=== PATIENT | male | born 1940 | race Two or more races ===

== ENCOUNTER 2016-10-14 20:15 | Inpatient (IN) | payer BC ==
[~2016-10-14] VITALS: Ht 172.7 cm; Wt 65.8 kg
[2016-10-14 20:17] VITALS: BP 101/53
[2016-10-14] MEDS ORDERED: Pantoprazole Inj IVP ONE (20:30)
[2016-10-14 21:05] LABS: BASOPHILS % (AUTO) 1.5 % (0.0-2.0); LYMPHOCYTES % (AUTO) 20.6 % (20.0-45.0); MEAN CORPUSCULAR HEMOGLOBIN 36.8 PG (27.0-31.0); MEAN CORPUSCULAR VOLUME 102 FL (80-99); MEAN PLATELET VOLUME 6.5 FL (6.5-10.1); MONOCYTES % (AUTO) 7.4 % (1.0-10.0); NEUTROPHILS % (AUTO) 69.5 % (45.0-75.0); PLATELET COUNT 133 K/UL (150-450); RED BLOOD COUNT 3.57 M/UL (4.70-6.10); RED CELL DISTRIBUTION WIDTH 12.4 % (11.6-14.8); WHITE BLOOD COUNT 7.5 K/UL (4.8-10.8)
[2016-10-14 21:13] LABS: INR 1.1 (0.9-1.1)
[2016-10-14 21:14] LABS: ALANINE AMINOTRANSFERASE 23 U/L (3-41); ALBUMIN/GLOBULIN RATIO 1.8 (1.0-2.7); ANION GAP 15 (5-15); ASPARTATE AMINO TRANSFERASE 20 U/L (5-40); CALCIUM 8.8 mg/dL (8.6-10.2); CARBON DIOXIDE 23 mEQ/L (20-30); CHLORIDE 102 mEQ/L (98-107); CREATININE 1.1 mg/dL (0.7-1.2); HEMOLYSIS 7; LIPASE 34 U/L (< 60); POTASSIUM 4.5 mEQ/L (3.4-4.9); SODIUM 140 mEQ/L (135-145); TOTAL PROTEIN 5.7 g/dL (6.6-8.7)
[2016-10-14 22:36] LABS: APPEARANCE,URINE CLEAR; KETONES,URINE NEGATIVE (NEGATIVE); LEUKOCYTE ESTERASE ,URINE NEGATIVE (NEGATIVE); NITRITE,URINE NEGATIVE (NEGATIVE); PH,URINE 5 (4.5-8.0); PROTEIN,URINE 2+ (NEGATIVE); UROBILINOGEN,URINE NORMAL MG/DL (0.0-1.0)
[2016-10-14] MEDS ORDERED: Nitroglycerin Subl 0.4mg tab (Bottle Of 25) SL PRN (22:45)
[2016-10-14] MEDS ORDERED: Milk of Magnesia 30ml Ud ORAL PRN (22:45)
[2016-10-14] MEDS ORDERED: Acetaminophen 650 MG SUPP RECTAL PRN ×2 (22:45)
[2016-10-14 22:56] LABS: RBC,URINE 0-2 /HPF (0 - 0); WBC,URINE 0-2 /HPF (0 - 0)
[2016-10-14 22:57] LABS: BACTERIA,URINE FEW /HPF
[2016-10-15] VITALS: BP 115/77
--- NOTE | 2016-10-15 02:20 | Emergency Room Report ---
History of Present Illness General Chief Complaint: Gastrointestinal Bleed Source: Patient, EMS Present Illness HPI Patient's 76-year-old male brought in by EMS after hematemesis. Patient was noted to have some difficulty with xhbbiy-gtanpg-fzjvgfchy emesis. Patient noted be hypotensive by EMS he started on IV fluids. Patient denies recent NSAID use or alcohol use.Patient reported having one episode of emesis. Allergies: Coded Allergies: No Known Allergies (Unverified , 10/14/16) Patient History Reviewed Nursing Documentation: PMH: Agreed, PSxH: Agreed Nursing Documentation-PMH Hx Hypertension: Yes - HYPERLIPIDEMIA Review of Systems All Other Systems: negative except mentioned in HPI Physical Exam Vital Signs Date Time Temp Pulse Resp B/P Pulse Ox O2 Delivery O2 Flow Rate FiO2 10/14/16 20:09 60 20 103/70 99 Room Air 10/14/16 20:17 95.3 General Appearance: GCS 15, moderate distress Eyes: bilateral eye conjunctivae pale ENT: no angioedema Neck: full range of motion Respiratory: lungs clear, normal breath sounds, no rhonchi Gastrointestinal: normal bowel sounds, non tender, soft Neurologic: normal inspection, alert, oriented x3 Skin: pallor Medical Decision Making Diagnostic Impression: Primary Impression: Gastrointestinal hemorrhage Additional Impression: Hypotension ER Course Patient presented for hematemesis. Differential diagnosis included was not limited to aortic enteric fistula, gastritis, Chandni-Caitlyn s tear, ulcer, coagulopathy, esophageal varices , anemia among others.Because of complexity of patient's case laboratory testing and imaging studies were ordered. The patient was given IV Protonix . he was started on IV fluids. Patient was noted to have initial adequate hemoglobin. Patient was type and crossed for blood. Patient was noted to have improvement in his blood pressure. The CT the abdomen pelvis read by radiology showed calcified gallstone without evident cholecystitis there is no noted obstruction. Dr. Carrillo Garcia was contacted for Dr. Balderrama for inpatient management. The family had requested the patient be transferred. The patient does not appear to be stable for transfer at this time. The patient agreed to be admitted to the hospital. Labs Test 10/14/16 20:35 10/14/16 22:10 White Blood Count 7.5 K/UL (4.8-10.8) Red Blood Count 3.57 M/UL (4.70-6.10) Hemoglobin 13.1 G/DL (14.2-18.0) Hematocrit 36.4 % (42.0-52.0) Mean Corpuscular Volume 102 FL (80-99) Mean Corpuscular Hemoglobin 36.8 PG (27.0-31.0) Mean Corpuscular Hemoglobin Concent 36.0 G/DL (32.0-36.0) Red Cell Distribution Width 12.4 % (11.6-14.8) Platelet Count 133 K/UL (150-450) Mean Platelet Volume 6.5 FL (6.5-10.1) Neutrophils (%) (Auto) 69.5 % (45.0-75.0) Lymphocytes (%) (Auto) 20.6 % (20.0-45.0) Monocytes (%) (Auto) 7.4 % (1.0-10.0) Eosinophils (%) (Auto) 1.0 % (0.0-3.0) Basophils (%) (Auto) 1.5 % (0.0-2.0) Prothrombin Time 11.0 SEC (9.30-11.50) Prothromb Time International Ratio 1.1 (0.9-1.1) Activated Partial Thromboplast Time 22 SEC (23-33) Sodium Level 140 mEQ/L (135-145) Potassium Level 4.5 mEQ/L (3.4-4.9) Chloride Level 102 mEQ/L (98-107) Carbon Dioxide Level 23 mEQ/L (20-30) Anion Gap 15 (5-15) Blood Urea Nitrogen 38 mg/dL (7-23) Creatinine 1.1 mg/dL (0.7-1.2) Estimat Glomerular Filtration Rate mL/min (>60) Glucose Level 175 mg/dL (74-106) Calcium Level 8.8 mg/dL (8.6-10.2) Total Bilirubin 0.4 mg/dL (0.0-1.2) Aspartate Amino Transf (AST/SGOT) 20 U/L (5-40) Alanine Aminotransferase (ALT/SGPT) 23 U/L (3-41) Alkaline Phosphatase 38 U/L (40-129) Total Protein 5.7 g/dL (6.6-8.7) Albumin 3.7 g/dL (3.5-5.2) Globulin 2.0 g/dL Albumin/Globulin Ratio 1.8 (1.0-2.7) Lipase 34 U/L (< 60) Urine Color Pale yellow Urine Appearance Clear Urine pH 5 (4.5-8.0) Urine Specific [place] 1.015 (1.005-1.035) Urine Protein 2+ (NEGATIVE) Urine Glucose (UA) Negative (NEGATIVE) Urine Ketones Negative (NEGATIVE) Urine Occult Blood Negative (NEGATIVE) Urine Nitrite Negative (NEGATIVE) Urine Bilirubin Negative (NEGATIVE) Urine Urobilinogen Normal MG/DL (0.0-1.0) Urine Leukocyte Esterase Negative (NEGATIVE) Urine RBC 0-2 /HPF (0 - 0) Urine WBC 0-2 /HPF (0 - 0) Urine Squamous Epithelial Cells None /LPF (NONE/OCC) Urine Bacteria Few /HPF (NONE) EKG Diagnostic Results Rate: normal Rhythm: NSR Last Vital Signs Date Time Temp Pulse Resp B/P Pulse Ox O2 Delivery O2 Flow Rate FiO2 10/14/16 20:17 95.3 57 20 101/53 99 Room Air Status: unchanged Disposition: ADMITTED INPATIENT Condition: Serious Referrals: [facility],REFERRING (PCP) Matt Cedeño October 15, 2016 02:20
[2016-10-15 02:21] VITALS: BP 126/68
[2016-10-15] MEDS: Pantoprazole Inj IV SCH ×2 (02:52→09:00)
[2016-10-15] MEDS: 1/2NS w/KCl 20mEq 1000ml 1,000 ML IV SCH ×2 (02:52→07:32)
[2016-10-15 08:00] VITALS: BP 120/72
[2016-10-15 12:00] VITALS: BP 124/71
--- NOTE | 2016-10-15 13:16 | GI Initial Consult Note ---
History of Present Illness General Date patient seen: October 15, 2016 Time patient seen: 13:02 Reason for Hospitalization: Gastrointestinal Bleed Referring physician: BETI HARPER Reason for Consultation: UGIB Present Illness HPI Patient's 76-year-old male brought in by EMS after hematemesis. Patient was noted to have some difficulty with osidcv-[id number]-hplpjpemh emesis. Patient noted be hypotensive by EMS he started on IV fluids. Patient denies recent NSAID use or alcohol use.Patient reported having one episode of emesis. GI CONSULT: HPI as noted above. GI consulted for possible UGIB. Pt seen on floor, awake A&Ox4 with daughter by bedside. No active s/sx of hematemesis or coffee grounds. According to the patient, his coffee ground emesis was a x1 episode. He states he had a lot of coffee prior that september of contributed to it. He also stated he felt nauseated at the time. Patients he had his stool previously tested for blood approximately 2 months ago by his primary care physician. Last colonoscopy was 12 years ago with unremarkable results. No history of upper endoscopy. He presents today with stable hgb and is currently tolerating diet at bedside. Lipase, LFTs unremarkable. Pt refusing any GI procedures and wishes to be discharged home. Allergies: Coded Allergies: No Known Allergies (Unverified , 10/14/16) Patient History History Provided By: Patient PMH Narrative Hx Hypertension: Yes - HYPERLIPIDEMIA Family History Narrative N/A Social History: Denies: alcohol use, drug use, other, smoking Review of Systems All Other Systems: negative except mentioned in HPI Physical Exam Vital Signs Date Time Temp Pulse Resp B/P Pulse Ox O2 Delivery O2 Flow Rate FiO2 10/14/16 20:09 60 20 103/70 99 Room Air 10/14/16 20:17 95.3 Sp02 EP Interpretation: reviewed Labs Laboratory Tests Test 10/14/16 20:35 10/14/16 22:10 White Blood Count 7.5 K/UL (4.8-10.8) Red Blood Count 3.57 M/UL (4.70-6.10) L Hemoglobin 13.1 G/DL (14.2-18.0) L Hematocrit 36.4 % (42.0-52.0) L Mean Corpuscular Volume 102 FL (80-99) H Mean Corpuscular Hemoglobin 36.8 PG (27.0-31.0) H Mean Corpuscular Hemoglobin Concent 36.0 G/DL (32.0-36.0) Red Cell Distribution Width 12.4 % (11.6-14.8) Platelet Count 133 K/UL (150-450) L Mean Platelet Volume 6.5 FL (6.5-10.1) Neutrophils (%) (Auto) 69.5 % (45.0-75.0) Lymphocytes (%) (Auto) 20.6 % (20.0-45.0) Monocytes (%) (Auto) 7.4 % (1.0-10.0) Eosinophils (%) (Auto) 1.0 % (0.0-3.0) Basophils (%) (Auto) 1.5 % (0.0-2.0) Prothrombin Time 11.0 SEC (9.30-11.50) Prothromb Time International Ratio 1.1 (0.9-1.1) Activated Partial Thromboplast Time 22 SEC (23-33) L Sodium Level 140 mEQ/L (135-145) Potassium Level 4.5 mEQ/L (3.4-4.9) Chloride Level 102 mEQ/L (98-107) Carbon Dioxide Level 23 mEQ/L (20-30) Anion Gap 15 (5-15) Blood Urea Nitrogen 38 mg/dL (7-23) H Creatinine 1.1 mg/dL (0.7-1.2) Estimat Glomerular Filtration Rate mL/min (>60) Glucose Level 175 mg/dL (74-106) H Calcium Level 8.8 mg/dL (8.6-10.2) Total Bilirubin 0.4 mg/dL (0.0-1.2) Aspartate Amino Transf (AST/SGOT) 20 U/L (5-40) Alanine Aminotransferase (ALT/SGPT) 23 U/L (3-41) Alkaline Phosphatase 38 U/L (40-129) L Total Protein 5.7 g/dL (6.6-8.7) L Albumin 3.7 g/dL (3.5-5.2) Globulin 2.0 g/dL Albumin/Globulin Ratio 1.8 (1.0-2.7) Lipase 34 U/L (< 60) Urine Color Pale yellow Urine Appearance Clear Urine pH 5 (4.5-8.0) Urine Specific [place] 1.015 (1.005-1.035) Urine Protein 2+ (NEGATIVE) H Urine Glucose (UA) Negative (NEGATIVE) Urine Ketones Negative (NEGATIVE) Urine Occult Blood Negative (NEGATIVE) Urine Nitrite Negative (NEGATIVE) Urine Bilirubin Negative (NEGATIVE) Urine Urobilinogen Normal MG/DL (0.0-1.0) Urine Leukocyte Esterase Negative (NEGATIVE) Urine RBC 0-2 /HPF (0 - 0) H Urine WBC 0-2 /HPF (0 - 0) Urine Squamous Epithelial Cells None /LPF (NONE/OCC) Urine Bacteria Few /HPF (NONE) General Appearance: no apparent distress Head: normocephalic EENT: PERRL/EOMI, normal ENT inspection Neck: supple Respiratory: no respiratory distress Cardiovascular: normal rate Rectal: deferred Neurologic: normal inspection, alert, oriented x3, responsive Psychiatric: normal inspection, judgement/insight normal, memory normal Skin: normal inspection, normal color, no rash, warm/dry Lymphatic: normal inspection, no adenopathy Current Medications Current Medications Medications (Trade) Dose Ordered Sig/Josh Route PRN Reason Start Time Stop Time Status Last Admin Dose Admin Acetaminophen (Tylenol) 650 mg Q4H PRN ORAL Mild Pain (Pain Scale 1-3) 10/14/16 22:45 11/13/16 22:44 Acetaminophen (Tylenol) 650 mg Q4H PRN ORAL fever 10/14/16 22:45 11/13/16 22:44 Acetaminophen (Tylenol) 650 mg Q4H PRN RECTAL Mild Pain (Pain Scale 1-3) 10/14/16 22:45 11/13/16 22:44 Acetaminophen (Tylenol) 650 mg Q4H PRN RECTAL fever 10/14/16 22:45 11/13/16 22:44 Dextrose (Dextrose 50%) STAT PRN IV Hypoglycemia 10/14/16 22:45 11/13/16 22:44 Magnesium Hydroxide (Mom) 30 ml HSPRN PRN ORAL Constipation 10/14/16 22:45 11/13/16 22:44 Nitroglycerin (Ntg) 0.4 mg Q5M PRN SL Prn Chest Pain 10/14/16 22:45 11/13/16 22:44 Ondansetron HCl (Zofran) 4 mg Q4HR PRN IVP Nausea & Vomiting 10/14/16 22:45 11/13/16 22:44 Pantoprazole (Protonix) 40 mg BIAC ORAL 10/15/16 16:30 11/14/16 16:29 GI: Plan Problems: (1) Care refused by patient (2) HTN (hypertension) (3) GI bleed (4) Gastrointestinal hemorrhage Plan refusing endoscopic procedures., wishes to be discharged last colonoscopy ~ 12 years ago with unremarkable results OB stool negative 2 months ago per patient lipase WNL soft diet, tolerating cont ppi zofran prn consider collecting addition OB stool fu with PCP Spoke to the patient regarding the possibility of having an UGIB due to his coffee ground emesis and recommended both the EGD/colonoscopy done as an outpatient. The patient acknowledged and stated he would follow up with his PCP. Explain to the patient regarding alternative of [facility] for colonoscopy. Discussed with Dr. Sanders. Thank you for referring this patient. Mounika Chase N.P. October 15, 2016 13:16
--- NOTE | 2016-10-15 13:35 | Diagnostic Imaging Report ---
Indications: Abdominal pain, hemoptysis versus hematemesis Technique: Continuous helical CT imaging of the abdomen and pelvis was performed with automatic exposure control following administration of nonionic IV contrast only, on a Siemens sensation [address] scanner. Axial, coronal, sagittal images were reconstructed at 5 mm slice thickness. No oral contrast was administered per requesting physician's order, despite no contraindications listed in either submitted clinical data or tech note.. CTDI volume(s): 16 mGy Total DLP: 894 mGy-cm Findings: Comparison: None Lack of oral contrast limits evaluation of gastrointestinal tract, nondilated throughout. Small hiatal hernia. Mild distention and increased fluid content within multiple small bowel loops in right lower quadrant. Mildly prominent mural enhancement. Appendix short or absent. No obvious mural thickening, adjacent stranding, extraluminal gas or fluid collections identified. Liver parenchyma diffusely decreased attenuation. Gallbladder contains 2 cm densely calcified stone. No obvious mural thickening, adjacent stranding or fluid. 1 cm circumscribed low-attenuation focus, separate punctate calcification in splenic lower pole. Subcentimeter circumscribed low attenuation foci in lower pole cortex of left kidney. Scattered arterial mural calcifications without obvious flow-limiting stenosis or occlusion. Moderate aortic and iliac artery tortuosity. Mild prominence of prostate gland, heterogeneous with focal calcification, dense floor of the urinary bladder. Pancreas, adrenal glands, right kidney, unopacified ureters and urinary bladder, seminal vesicles, retroperitoneum, mesentery, remainder visualized abdominopelvic anatomy unremarkable. Small calcified nodular density lower lobe right lung. Irregular pleural-based linear densities and dependent portions both lung bases. Multilevel disc space narrowing with marginal osteophyte formation, vacuum phenomenon, facet sclerosis and hypertrophy lumbar, lower thoracic spine. 6 x 6 x 13 mm nodular calcification within spinal canal at the L3-4 level, uncertain whether intradural or extradural. Significant narrowing or spinal canal results. Subcentimeter anterior subluxation of L3 on L4. No associated pars interarticularis defect. IMPRESSION: No evidence of acute abdominopelvic disease, with limitation as described. Subtle but potentially significant abnormalities the gastrointestinal tract may be missed. Repeat CT scan with full oral and IV contrast preparation recommended for more complete evaluation, as clinically indicated Small hiatal hernia Hepatic steatosis Cholelithiasis Splenic cyst and granuloma Probable left renal cortical cysts Prominent, heterogeneous prostate Pulmonary bibasal subsegmental atelectasis versus scarring, right lung base granuloma Degenerative spondylosis Nodular calcification in spinal canal at L3-4 level, nonspecific, uncertain whether intradural or extradural. Diagnostic possibilities include but are not necessarily limited to calcified, sequestered disc fragment, calcified neoplasm such as meningioma. MRI of the lumbar spine without and with gadolinium recommended for more complete evaluation This correlates with [facility] preliminary report.
--- NOTE | 2016-10-15 13:49 | History & Physical ---
History and Physical History & Physicial dict syncope, low BP UGI bleed refuses further care here dc to care of his PMD protonix rx BETI HARPER October 15, 2016 13:49
--- NOTE | 2016-10-16 01:21 | History and Physical Report ---
DATE OF ADMISSION: 10/14/2016 CHIEF COMPLAINT: Syncope with upper GI bleeding. HISTORY OF PRESENT ILLNESS: The patient was at a nearby museum when he was standing up and suddenly felt faint. He says that his friends helped him to the floor and he nearly passed out. He vomited one or more times with some coffee-grounds emesis. He came to the emergency department by paramedics. He was initially hypotensive in the field, but was normotensive when he arrived here. Since that time, there has been no further complaints of nausea, vomiting, or evidence of GI bleeding. He got some intravenous fluids and his blood pressure has been satisfactory. This morning, he was seen by Gastroenterology and refused any further testing, intravenous fluids, medications, or endoscopy and wishes to go home. He tolerated the breakfast and lunch today. PAST MEDICAL HISTORY: Hypertension and hyperlipidemia. He has no history of ulcer or gastritis. No history of GI bleeding. No history of surgical procedures. He had kidney stones. There is no other health problems identified. ALLERGIES: None. MEDICATIONS: Ramipril and Vytorin. SOCIAL HISTORY: He smokes about 1/4 pack of cigarettes or less daily. He does not drink alcohol excessively. He does not use nonsteroidal medication. REVIEW OF SYSTEMS: Otherwise unremarkable. PHYSICAL EXAMINATION: GENERAL: The patient is alert and responds appropriately. He is well developed and well nourished. VITAL SIGNS: Normal. HEENT: Head is normocephalic. NECK: Has no jugular venous distention. No lymphadenopathy. CHEST: Clear. CARDIAC: Rhythm is regular without murmur or gallop. ABDOMEN: Soft and nontender. Liver and spleen not enlarged. No mass or ascites. EXTREMITIES: There is no clubbing, cyanosis, or edema. LABORATORY STUDIES: Show hemoglobin 13.1, hematocrit 36.4, MCV 102, and platelets 133,000. White count is normal. Chemistry shows mild elevation of BUN at 38 with creatinine 1.1. Blood sugar is 175. Urinalysis shows 2+ protein. Coagulation parameters are normal. IMPRESSIONS: 1. Syncope with hypotension. 2. Upper gastrointestinal bleeding. 3. Mild anemia with macrocytosis. 4. Mild hyperglycemia. 5. History of hypertension. 6. Hyperlipidemia. 7. Mild proteinuria. PLAN: I discussed his condition with the patient and the daughter at the bedside. I explained the risks of further bleeding, but the patient declines to have further treatment or evaluations at this hospital and wishes to leave today to seek further care from his primary physician with whom he spoken by phone. I will prescribe Protonix and advice the importance of taking it daily until he is evaluated further. Vinicius Balderrama M.D. DR: GUEVARA JOB#: [id number] CC: DANO
--- NOTE | 2016-10-16 03:21 | Consultation ---
DATE OF CONSULTATION: 10/15/2016 GASTROLOGY CONSULTATION CHIEF COMPLAINT: I was asked to see this patient by Dr. Vinicius Balderrama for evaluation of gastrointestinal bleeding. HISTORY OF PRESENT ILLNESS: The patient is a 76-year-old white man, who was admitted to the hospital after having dark emesis last night. This was the first time doing this. He has never had an ulcer before and he does take occasional nonsteroidal antiinflammatory drugs. His bowel movements are regular and brown. He is not having abdominal pain. He has never had endoscopy. His last colonoscopy was 12 years ago. The patient does not want to have any endoscopy or colonoscopy in this hospital. He refuses to have any gastroscope workup. He understands there is risk of refusal for appropriate care including and missed disease. He wants to go to his original doctor outside of the hospital and get his care there. PAST MEDICAL HISTORY: History of hypercholesterolemia on Vytorin, and history of high blood pressure on Ramipril. FAMILY HISTORY: Positive for mother having cancer of some type. SOCIAL HISTORY: The patient smokes one pack of cigarettes a week. He does not drink alcohol. He is . REVIEW OF SYSTEMS: Otherwise negative. PHYSICAL EXAMINATION: GENERAL: The patient is a pleasant white man, in no distress. HEENT: Normocephalic and atraumatic. Sclerae anicteric. Oropharynx, clear. NECK: Supple. CHEST: Clear to auscultation. CARDIOVASCULAR: Revealed a regular rate. ABDOMEN: Soft and nontender with no masses. EXTREMITIES: No edema. LABORATORY DATA: Noted. ASSESSMENT: This patient presents with upper gastrointestinal bleeding. Differential diagnosis include usual cough versus an ulcer. The patient refuses to have any endoscopy or any gastrointestinal workup here and wants to leave against medical advice. He understands fully the consequence and possibilities of missed diagnosis or delayed diagnosis including and disability. RECOMMENDATIONS: 1. Continue proton pump inhibitor. 2. The patient to follow up with primary physician for gastrointestinal workup including endoscopy. Thank you for asking me to participate in care this patient. Jana Hanson M.D. DR: Shelly JOB#: [id number] CC:
--- NOTE | 2016-10-16 18:59 | Discharge Summary ---
Discharge Summary Hospital Course Date of Admission October 14, 2016 at 21:34 Date of Discharge October 15, 2016 at 15:11 Admitting Diagnosis UPPER GI BLEED HPI Fabiano Dickey is a 76 year old male who was admitted on October 14, 2016 at 21:34 for Upper Gastrointestinal Bleed Hospital Course [id number] Discharge Discharge Disposition Patient was discharged to Home (01) Discharge Diagnoses: Cady Isabel NP October 16, 2016 18:59
--- NOTE | 2016-10-17 07:32 | Discharge Summary 2 SIG ---
DATE OF ADMISSION: 10/14/2016 DATE OF DISCHARGE: 10/15/2016 BRIEF HOSPITAL COURSE: The patient is a 76-year-old male, who was at the nearby museum when suddenly fainted and he nearly passed out. He vomited, he had coffee-grounds emesis and paramedics were called in. He was initially hypotensive in the field, but was smoked normotensive upon arrival to ED. He was given IV hydration and was started on Protonix. Hemoglobin was 13, hematocrit was 36. He was seen by Gastroenterology and the patient refused any further testing or any endoscopy workup and wished to be discharged home and follow up with his primary care physician. Diet was advanced and he was tolerating diet. I have discussed with the patient and daughter at bedside, the risks of further bleeding and the consequences and possibilities of missed diagnosis or delayed diagnosis. The patient has already spoken with his primary physician over the phone. He was discharged with prescriptions for Protonix and advised the importance of taking it daily until he is evaluated further. FINAL DIAGNOSES: 1. Syncope with hypotension. 2. Upper gastrointestinal bleed. 3. Mild anemia with macrocytosis. 4. Mild hyperglycemia. 5. History of hypertension. 6. Hyperlipidemia. 7. Mild proteinuria. I have been assigned to dictate discharge summary on this account and I was not involved in the patient's management. Vinicius Balderrama M.D. I have been assigned to dictate discharge summary on this account and I was not involved in the patient's management. Cady Isabel N.P. DR: Bre JOB#: [id number] CC:
== END 2016-10-15 15:11 | disposition home or self-care (01) | DRG 379 ==
LOC: EDBD 20:15 → EMR 21:25 → 2W 21:34 → EDBEDREQ 22:56
DX: K92.2 Gastrointestinal hemorrhage, unspecified (principal); I95.9 Hypotension, unspecified; R55 Syncope and collapse; D64.9 Anemia, unspecified; R73.9 Hyperglycemia, unspecified; I10 Essential (primary) hypertension; E78.5 Hyperlipidemia, unspecified; Z53.20 Procedure and treatment not carried out because of patient's decision for unspecified reasons; F17.200 Nicotine dependence, unspecified, uncomplicated
CPT/HCPCS: 36415; 74177; 80053; 81003; 83690; 85025; 85610; 85730; 86850; 86900; 86901; 86920